=== PATIENT | male | born 2000 | race Caucasian/White ===

== ENCOUNTER 2018-01-21 12:53 | Emergency (ER) | payer MEDICAID, OTHER ==
[2018-01-21 13:11] VITALS: BP 130/64
[2018-01-21] MEDS ORDERED: Bacitracin Oint 1 GM U/D Packet TOP ONE (13:19)
--- NOTE | 2018-01-21 13:21 | EDM.PDOC ---
ED HPI GENERAL MEDICAL PROBLEM - General Chief Complaint: Laceration Stated Complaint: LT RING FINGER Time Seen by Provider: 01/21/18 13:19 Source of Information: Reports: Patient History Limitations: Reports: No Limitations - History of Present Illness INITIAL COMMENTS - FREE TEXT/NARRATIVE: Pt arrived after cutting his ring finger. He was working at a [employer] in [employer] Onset: Today Duration: Hour(s): Location: Reports: Upper Extremity, Left Associated Symptoms: Reports: No Other Symptoms - Related Data Allergies Allergy/AdvReac Type Severity Reaction Status Date / Time Sulfa (Sulfonamide Allergy Rash Verified 01/21/18 13:21 Antibiotics) Home Meds: Home Meds NK [No Known Home Meds] 01/21/18 [History] Past Medical History Musculoskeletal History: Reports: Fracture, Neck Pain, Chronic Neurological History: Reports: Migraines Psychiatric History: Reports: Anxiety Dermatologic History: Reports: Other (See Below) Other Dermatologic History: sensative skin - Past Surgical History GI Surgical History: Reports: Appendectomy, Other (See Below) Social & Family History - Family History Family Medical History: Noncontributory - Tobacco Use Smoking Status *Q: Current Every Day Smoker Years of Tobacco use: 1 Packs/Tins Daily: 1 Used Tobacco, but Quit: No Second Hand Smoke Exposure: No - Caffeine Use Caffeine Use: Reports: Soda - Alcohol Use Days Per Week of Alcohol Use: 0 - Recreational Drug Use Recreational Drug Use: No Drug Use in Last 12 Months: Yes Recreational Drug Type: Reports: Marijuana/Hashish Recreational Drug Use Frequency: Weekly ED ROS GENERAL - Review of Systems Review Of Systems: See Below Constitutional: Reports: No Symptoms HEENT: Reports: No Symptoms Respiratory: Reports: No Symptoms Cardiovascular: Reports: No Symptoms Endocrine: Reports: No Symptoms GI/Abdominal: Reports: No Symptoms : Reports: No Symptoms ED EXAM, SKIN/RASH Exam: See Below Exam Limited By: No Limitations General Appearance: Alert Extremities: Other (pt has a 1/4 inch laceration on the middle finger of the left hand. ) Course - Vital Signs Last Recorded V/S: Last Vital Signs Temp 36.0 C 01/21/18 13:27 Pulse 82 01/21/18 13:27 Resp 15 01/21/18 13:27 BP 130/64 01/21/18 13:27 Pulse Ox 95 01/21/18 13:27 - Orders/Labs/Meds Meds: Medications Discontinued Medications Generic Name Dose Route Start Last Admin Trade Name Lamin PRN Reason Stop Dose Admin Bacitracin 1 dose 01/21/18 13:19 01/21/18 13:55 Bacitracin Oint 1 Gm TOP 01/21/18 13:20 1 dose ONETIME ONE Administration Lidocaine HCl 5 ml 01/21/18 13:18 01/21/18 13:55 Xylocaine-Mpf 1% INJECT 01/21/18 13:19 5 ml ONETIME ONE Administration - Re-Assessments/Exams Free Text/Narrative Re-Assessment/Exam: 01/21/18 14:43 area was cleansed well and infiltrated with lidocaine. The wound was closed with 4 stitches of 5-0 prolene. Departure - Departure Time of Disposition: 14:37 Disposition: Home, Self-Care 01 Condition: Fair Clinical Impression: Laceration - Discharge Information Instructions: Laceration Care, Adult Referrals: PCP,None [Primary Care Provider] - Forms: ED Department Discharge Care Plan Goals: keep dry, no further ointments sr in 7-8 days.
== END 2018-01-21 14:43 | disposition home or self-care (01) ==
LOC: JP.ED 12:53
DX: S61.215A Laceration without foreign body of left ring finger without damage to nail, initial encounter (principal); Z88.2 Allergy status to sulfonamides; F17.210 Nicotine dependence, cigarettes, uncomplicated; W45.8XXA Other foreign body or object entering through skin, initial encounter; Y93.89 Activity, other specified; Y92.511 Restaurant or cafe as the place of occurrence of the external cause
CPT/HCPCS: 12001; 99283-25

== ENCOUNTER 2018-06-01 06:30 | Emergency (ER) | payer SELFPAY ==
[2018-06-01] MEDS ORDERED: Ondansetron 4 MG/2 ML SDV IVPUSH ONE (06:57)
[2018-06-01] MEDS ORDERED: Sodium Chloride 0.9% 1,000 ML IV SCH (07:00)
--- NOTE | 2018-06-01 07:04 | EDM.PDOCBH ---
<Elizabeth Black - Last Filed: 06/01/18 06:57> ED HPI GENERAL MEDICAL PROBLEM - General Chief Complaint: Behavioral/Psych Stated Complaint: TOOK DURGS THAT HE SHOULD NOT HAVE Time Seen by Provider: 06/01/18 06:58 Source of Information: Reports: Patient History Limitations: Reports: No Limitations - History of Present Illness INITIAL COMMENTS - FREE TEXT/NARRATIVE: pt was upset with a girl named Maren and he took a unkown amount of tylenol and motrin and he drank a bottle of whiskey. He has been depressed in the past but was very upset last nite. Onset: Other ( Took the pills about 1/2 hour prior to arrival. ) Duration: Hour(s): Location: Reports: Generalized Quality: Reports: Other (pt is vomiting. ) Associated Symptoms: Reports: Nausea/Vomiting - Related Data Allergies Allergy/AdvReac Type Severity Reaction Status Date / Time Sulfa (Sulfonamide Allergy Rash Verified 01/21/18 13:21 Antibiotics) Home Meds: Home Meds NK [No Known Home Meds] 01/21/18 [History] Past Medical History Musculoskeletal History: Reports: Fracture, Neck Pain, Chronic Neurological History: Reports: Migraines Psychiatric History: Reports: Anxiety Dermatologic History: Reports: Other (See Below) Other Dermatologic History: sensative skin - Past Surgical History HEENT Surgical History: Reports: Adenoidectomy, Tonsillectomy GI Surgical History: Reports: Appendectomy, Other (See Below) Social & Family History - Family History Family Medical History: Noncontributory - Tobacco Use Smoking Status *Q: Heavy Tobacco Smoker Years of Tobacco use: 8 Packs/Tins Daily: 0.5 - Caffeine Use Caffeine Use: Reports: None - Recreational Drug Use Recreational Drug Use: Yes Recreational Drug Type: Reports: Marijuana/Hashish ED ROS GENERAL - Review of Systems Review Of Systems: See Below Constitutional: Reports: No Symptoms HEENT: Reports: No Symptoms Respiratory: Reports: No Symptoms Cardiovascular: Reports: No Symptoms Endocrine: Reports: No Symptoms GI/Abdominal: Reports: Abdominal Pain, Nausea, Vomiting, Other (pt took a overdose of tylenol and motrin. ) : Reports: No Symptoms Musculoskeletal: Reports: No Symptoms Skin: Reports: No Symptoms ED EXAM, BEHAVIORAL HEALTH - Physical Exam Exam: See Below Text/Narrative:: pt arrived with a history of taking an unknown amount of tylenol and motrin and drinking a bottle of whiskey. Exam Limited By: No Limitations General Appearance: Alert, Anxious, Moderate Distress, Other ( continuous vomiting. ) Ears: Normal TMs Nose: Normal Inspection Throat/Mouth: Normal Inspection Head: Atraumatic Neck: Normal Inspection Respiratory/Chest: No Respiratory Distress Cardiovascular: Regular Rate, Rhythm, Tachycardia, Other ( heart rate is 122. ) GI/Abdominal: Soft, Other (mild tenderness, ) (Male) Exam: Deferred Rectal (Males) Exam: Deferred Back Exam: Normal Inspection Extremities: Normal Inspection Neurological: Alert Psychiatric: Alert, Depressed Mood, Restless, Tearful COURSE, BEHAVIORAL HEALTH COMP - Course Vital Signs: Last Vital Signs Temp 98.1 F 06/01/18 08:00 Pulse 95 06/01/18 08:15 Resp 18 06/01/18 08:15 BP 110/59 L 06/01/18 08:15 Pulse Ox 95 06/01/18 08:15 Orders, Labs, Meds: Active Orders 24 hr Category Date Time Status DRUG SCREEN, URINE [URCHEM] Stat Lab 06/01/18 07:40 Ordered UA W/MICROSCOPIC [URIN] Urgent Lab 06/01/18 07:40 Ordered Laboratory Tests 06/01/18 06/01/18 06/01/18 Range/Units 07:10 07:10 07:10 WBC 11.6 H (4.5-11.0) K/uL RBC 5.32 (4.30-5.90) M/uL Hgb 16.5 H (12.0-15.0) g/dL Hct 48.0 (40.0-54.0) % MCV 90 (80-98) fL MCH 31 (27-31) pg MCHC 34 (32-36) % Plt Count 263 (150-400) K/uL Neut % (Auto) 63 (36-66) % Lymph % (Auto) 30 (24-44) % [place] % (Auto) 7 H (2-6) % Eos % (Auto) 1 L (2-4) % Baso % (Auto) 1 (0-1) % Sodium 143 (140-148) mmol/L Potassium 3.7 (3.6-5.2) mmol/L Chloride 103 (100-108) mmol/L Carbon Dioxide 25 D (21-32) mmol/L Anion Gap 18.7 H (5.0-14.0) mmol/L BUN 7 (7-18) mg/dL Creatinine 0.8 (0.8-1.3) mg/dL Est Cr Clr Drug Dosing 153.35 mL/min Estimated GFR (MDRD) > 60 (>60) Glucose 124 H (74-106) mg/dL Calcium 8.6 (8.5-10.1) mg/dL Total Bilirubin 0.4 (0.2-1.0) mg/dL AST 18 (15-37) U/L ALT 22 (12-78) U/L Alkaline Phosphatase 57 (46-116) U/L Total Protein 7.3 (6.4-8.2) g/dL Albumin 4.1 (3.4-5.0) g/dL Globulin 3.2 (2.3-3.5) g/dL Albumin/Globulin Ratio 1.3 (1.2-2.2) Urine Color Urine Appearance Urine pH (4.5-8.0) Ur Specific [place] (1.008-1.030) Urine Protein (NEGATIVE) mg/dL Urine Glucose (UA) (NEGATIVE) mg/dL Urine Ketones (NEGATIVE) mg/dL Urine Occult Blood (NEGATIVE) Urine Nitrite (NEGAITVE) Urine Bilirubin (NEGATIVE) Urine Urobilinogen (NORMAL) mg/dL Ur Leukocyte Esterase (NEGATIVE) Urine RBC (0-5) Urine WBC (0-5) Ur Epithelial Cells Amorphous Sediment Urine Bacteria Urine Mucus Urine Opiates Screen (NEGATIVE) Ur Oxycodone Screen (NEGATIVE) Urine Methadone Screen (NEGATIVE) Ur Propoxyphene Screen (NEGATIVE) Acetaminophen 537.0 H (10.0-30.0) ug/mL Ur Barbiturates Screen (NEGATIVE) Ur Tricyclics Screen (NEGATIVE) Ur Phencyclidine Scrn (NEGATIVE) Ur Amphetamine Screen (NEGATIVE) U Methamphetamines Scrn (NEGATIVE) Urine MDMA Screen (NEGATIVE) U Benzodiazepines Scrn (NEGATIVE) U Cocaine Metab Screen (NEGATIVE) U Marijuana (THC) Screen (NEGATIVE) Ethyl Alcohol 83 mg/dL 06/01/18 06/01/18 Range/Units 07:40 07:40 WBC (4.5-11.0) K/uL RBC (4.30-5.90) M/uL Hgb (12.0-15.0) g/dL Hct (40.0-54.0) % MCV (80-98) fL MCH (27-31) pg MCHC (32-36) % Plt Count (150-400) K/uL Neut % (Auto) (36-66) % Lymph % (Auto) (24-44) % [place] % (Auto) (2-6) % Eos % (Auto) (2-4) % Baso % (Auto) (0-1) % Sodium (140-148) mmol/L Potassium (3.6-5.2) mmol/L Chloride (100-108) mmol/L Carbon Dioxide (21-32) mmol/L Anion Gap (5.0-14.0) mmol/L BUN (7-18) mg/dL Creatinine (0.8-1.3) mg/dL Est Cr Clr Drug Dosing mL/min Estimated GFR (MDRD) (>60) Glucose (74-106) mg/dL Calcium (8.5-10.1) mg/dL Total Bilirubin (0.2-1.0) mg/dL AST (15-37) U/L ALT (12-78) U/L Alkaline Phosphatase (46-116) U/L Total Protein (6.4-8.2) g/dL Albumin (3.4-5.0) g/dL Globulin (2.3-3.5) g/dL Albumin/Globulin Ratio (1.2-2.2) Urine Color Yellow Urine Appearance Clear Urine pH 7.0 (4.5-8.0) Ur Specific [place] 1.005 L (1.008-1.030) Urine Protein Negative (NEGATIVE) mg/dL Urine Glucose (UA) Normal (NEGATIVE) mg/dL Urine Ketones Negative (NEGATIVE) mg/dL Urine Occult Blood Negative (NEGATIVE) Urine Nitrite Negative (NEGAITVE) Urine Bilirubin Negative (NEGATIVE) Urine Urobilinogen Normal (NORMAL) mg/dL Ur Leukocyte Esterase Negative (NEGATIVE) Urine RBC Not seen (0-5) Urine WBC Not seen (0-5) Ur Epithelial Cells Not seen Amorphous Sediment Not seen Urine Bacteria Not seen Urine Mucus Not seen Urine Opiates Screen Negative (NEGATIVE) Ur Oxycodone Screen Negative (NEGATIVE) Urine Methadone Screen Negative (NEGATIVE) Ur Propoxyphene Screen Negative (NEGATIVE) Acetaminophen (10.0-30.0) ug/mL Ur Barbiturates Screen Negative (NEGATIVE) Ur Tricyclics Screen Negative (NEGATIVE) Ur Phencyclidine Scrn Negative (NEGATIVE) Ur Amphetamine Screen Negative (NEGATIVE) U Methamphetamines Scrn Negative (NEGATIVE) Urine MDMA Screen Negative (NEGATIVE) U Benzodiazepines Scrn Negative (NEGATIVE) U Cocaine Metab Screen Negative (NEGATIVE) U Marijuana (THC) Screen Presumptive positive H (NEGATIVE) Ethyl Alcohol mg/dL Medications Discontinued Medications Generic Name Dose Route Start Last Admin Trade Name Freq PRN Reason Stop Dose Admin Sodium Chloride 1,000 mls @ 999 mls/hr 06/01/18 07:00 06/01/18 07:03 Normal Saline IV 999 mls/hr ASDIRECTED CONSTANTINE Administration Acetylcysteine 11,000 mg/ 305 mls @ 305 mls/hr 06/01/18 08:00 06/01/18 07:51 Dextrose/Water IV 06/01/18 08:59 305 mls/hr ONETIME ONE Administration Ondansetron HCl 4 mg 06/01/18 06:57 06/01/18 07:03 Zofran IVPUSH 06/01/18 06:58 4 mg ONETIME ONE Administration Departure - Departure Disposition: DC/Tfer to Other 70 Clinical Impression: Intentional acetaminophen overdose Qualifiers: Encounter type: initial encounter Qualified Code(s): T39.1X2A - Poisoning by 4- Aminophenol derivatives, intentional self-harm, initial encounter - Discharge Information Referrals: PCP,None [Primary Care Provider] - Forms: ED Department Discharge Care Plan Goals: Patient will be urgently transferred to [facility] in [place] for severe acetaminophen overdose. <Pedro Ramos - Last Filed: 06/01/18 09:48> COURSE, BEHAVIORAL HEALTH COMP - Course Re-Assessment/Re-Exam: Patient care accepted from Dr. Black. Patient admits he took a large amount of acetaminophen. His initial level is 537. 11,000 mg of IV acetylcysteine was started and transfer was arranged to [facility]. EtOH was 0.08. LFTs are still normal at this time. Departure - Departure Time of Disposition: 08:44 Condition: Serious
[2018-06-01] MEDS ORDERED: Acetylcysteine 20% 200 MG/ML 30 ML SDV IV ONE (07:20)
[2018-06-01] MEDS ORDERED: ACETYLCYSTEINE IV ONE ×2 (08:00)
[2018-06-01] MEDS ORDERED: DEXTROSE 5% IV ONE ×2 (08:00)
[2018-06-01] MEDS ORDERED: WATER IV ONE ×2 (08:00)
[2018-06-01 08:20] VITALS: BP 110/59
== END 2018-06-01 08:35 | disposition other institution (70) ==
LOC: JP.ED 06:30
DX: T39.1X2A Poisoning by 4-Aminophenol derivatives, intentional self-harm, initial encounter (principal); F17.210 Nicotine dependence, cigarettes, uncomplicated; Z88.2 Allergy status to sulfonamides
CPT/HCPCS: 36415; 80053; 80305; 81001; 85025; 96361; 96365; 96375; 99285; G0480; J2405; J7030; J7060

== ENCOUNTER 2018-12-02 15:19 | Emergency (ER) | payer MEDICAID, OTHER ==
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
[2018-12-02] MEDS ORDERED: LORazepam 2 MG/ML SDV IM ONE (16:19)
[2018-12-02 16:34] VITALS: BP 158/87
[2018-12-02] MEDS ORDERED: QUEtiapine 25 MG Tab PO ONE (16:53)
== END 2018-12-02 17:15 | disposition home or self-care (01) ==
LOC: JP.ED 15:19
DX: F41.9 Anxiety disorder, unspecified (principal); F17.210 Nicotine dependence, cigarettes, uncomplicated; Z88.2 Allergy status to sulfonamides; Z79.899 Other long term (current) drug therapy
CPT/HCPCS: 36415; 80053; 80305; 85025; 96372; 99284; A9270; G0480; J2060

== ENCOUNTER 2019-07-11 12:12 | Emergency (ER) | payer SELFPAY ==
[2019-07-11 13:05] VITALS: BP 105/81; PULSE 57
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
== END 2019-07-11 14:44 | disposition home or self-care (01) ==
LOC: JP.ED 12:12
DX: J02.9 Acute pharyngitis, unspecified (principal); Z88.2 Allergy status to sulfonamides; Z87.891 Personal history of nicotine dependence
CPT/HCPCS: 87081; 87880-QW; 99282; 99283